=== PATIENT | female | born 1990 | race Caucasian/White ===

== ENCOUNTER 2019-02-25 06:15 | Day surgery (SDC) | payer OTHER, BC ==
[2019-02-25] MEDS ORDERED: FENTAnyl 50 MCG/ML VIAL (08:40)
[2019-02-25] MEDS ORDERED: MIDAZOLAM 1 MG/ML 2 ML INJ ×2 (08:40)
== END 2019-02-25 10:47 | disposition home or self-care (01) ==
LOC: GIL 06:15
DX: R19.7 Diarrhea, unspecified (principal); K64.8 Other hemorrhoids
CPT/HCPCS: 45380; 84703; 88305